=== PATIENT | female | born 1985 | race Caucasian/White ===

== ENCOUNTER 2016-11-18 14:44 | Inpatient (IN) ==
[2016-11-18] MEDS ORDERED: KEFZOL 1 GM/D5W 1 GM/50 ML IVPB IV PRN (14:48)
[2016-11-18] MEDS ORDERED: TYLENOL PO PRN (14:48)
[2016-11-18] MEDS ORDERED: AMPICILLIN 2 GM/NS 2 GM/100 ML IVPB IV ONE ×2 (14:48)
[2016-11-18] MEDS ORDERED: PEPCID IV PRN (14:48)
[2016-11-18] MEDS ORDERED: LR 1,000 ML IV SCH (14:48)
[2016-11-18] MEDS ORDERED: LR 500 ML IV ONE (14:48)
[2016-11-18] MEDS ORDERED: PITOCIN 30 UNITS/LR 30 UNITS/500 ML IV.SOLN IV SCH (14:48)
[2016-11-18] MEDS ORDERED: STADOL IV PRN (14:48)
[2016-11-18] MEDS ORDERED: PEPCID PO ONE (14:48)
[2016-11-18] MEDS ORDERED: REGLAN PO ONE (14:48)
[2016-11-18] MEDS ORDERED: PEPCID PO PRN (14:48)
[2016-11-18] MEDS ORDERED: ZOFRAN IV PRN (14:48)
[2016-11-18 15:07] LABS: MANUAL DIFF NEEDED? NO
[2016-11-18 15:18] LABS: BASO% 0.4 % (0.0-0.8); EOS# 0.03 X1000 (0.0-0.7); EOS% 0.3 % (0.0-10.0); HEMATOCRIT 35.2 % (37.0-47.0); HEMOGLOBIN 11.6 g/dL (12.0-16.0); IMM GRAN# 0.16 X1000 (0.0-0.04); IMM GRAN% 1.4 % (0.0-0.5); LYMPH# 2.15 X1000 (1.2-3.4); LYMPH% 18.9 % (20.5-51.1); MCV 82.1 FL (81-99); MONO# 0.81 X1000 (0.11-0.59); MONO% 7.1 % (1.7-9.3); MPV 10.5 FL (7.4-10.4); NEUT% 71.9 % (42.2-75.2); PLT 244 X1000 (130-400); RBC 4.29 XMIL (4.2-5.4)
--- NOTE | 2016-11-18 15:45 | HISTORY AND PHYSICAL ---
DIAGNOSES: 1. Intrauterine urine at term. 2. Active labor. 3. No care. 4. Drug abuse. 5. Rubella nonimmune. 6. Vaginal condyloma. 7. Meconium. CONDITION: Stable. Ms. Palma is a 31-year-old, 4, para 3, estimated date of delivery of 11/17 by 12 week ultrasound who presents in active labor. She denies rupture of membranes. She denies vaginal bleeding. She states the pain started earlier today and she arrived to the ER via ambulance and was found to be completely dilated. She has had 3 previous vaginal deliveries. Other pregnancies have also been complicated by drug use. The patient states she has taken Dilaudid and amphetamines IV. She has no other medical history, no other surgical history, 3 previous vaginal deliveries. ALLERGIES: No known drug allergies. MEDICATIONS: No prescribed medications. SOCIAL HISTORY: She has some a history of tobacco use. Unsure if she still smokes or not. She is uncooperative at this point. PAST MEDICAL HISTORY: History of anxiety. FAMILY HISTORY: Noncontributory towards delivery however maternal grandmother colon cancer. Maternal grandmother, sister, brother, mother diabetes. Hypertension mother and father. Liver disease mother and father, grandmother. Vital signs are stable. She is in distress with contractions. Unable to get adequate physical exam. She does not appear to be any respiratory distress. Her vitals are stable. She is completely dilated. The infant's scalp noted to be meconium stained. She fights was pushing but finally pushes and delivered a viable male , occiput anterior, over an intact perineum. Shoulders delivered without difficulty followed by the rest of the body. Cord quickly clamped and cut and care taken over by nursery personnel. Cord blood was obtained. The cord is meconium stained. It is 3 vessels. Gentle traction resulted in delivery of an intact placenta that appears normal, some odor to it. The perineum is without lacerations. ESTIMATED BLOOD LOSS: 100 mL. All counts correct. ASSESSMENT: Term , active labor. No care. Drug use. Rubella nonimmune. Meconium stained fluid in infant, possible oligo, possible premature rupture of membranes. PLAN: At this point, after delivery is done routine care. cc: Keshav Senior MD
[2016-11-18 15:52] LABS: RAPID HIV PRESUMPTIVE NEGATIVE
[2016-11-18] MEDS ORDERED: MINERAL OIL PO PRN (16:17)
[2016-11-18] MEDS ORDERED: PITOCIN IM PRN (16:17)
[2016-11-18] MEDS ORDERED: HYDROXYZINE PO PRN (16:17)
[2016-11-18] MEDS ORDERED: HYDROXYZINE IM PRN (16:17)
[2016-11-18] MEDS ORDERED: XYLOCAINE-MPF 1% INJ PRN (16:17)
[2016-11-18] MEDS ORDERED: PERI MEDS (DERMOPLAST/NUPERCAINAL/TUCKS) MISC PRN (16:17)
[2016-11-18] MEDS ORDERED: CYTOTEC PO PRN (16:17)
[2016-11-18] MEDS ORDERED: M-M-R II VACCINE SUBQ ONE (16:17)
[2016-11-18] MEDS ORDERED: PITOCIN 20 UNITS/LR 20 UNITS/1,000 ML IV.SOLN IV SCH (16:17)
[2016-11-18] MEDS ORDERED: BENADRYL PO PRN (16:17)
[2016-11-18] MEDS ORDERED: PITOCIN 30 UNITS/LR 30 UNITS/500 ML IV.SOLN IV ONE (16:17)
[2016-11-18] MEDS ORDERED: BENADRYL IV PRN (16:17)
[2016-11-18] MEDS ORDERED: BOOSTRIX VACCINE IM ONE (16:17)
[2016-11-18] MEDS ORDERED: AMBIEN PO PRN (16:17)
[2016-11-18] MEDS: MOTRIN PO PRN (18:40)
[2016-11-18] MEDS ORDERED: AMPICILLIN 1 GM/NS 1 GM/50 ML IVPB IV SCH (18:50)
[2016-11-18 19:35] LABS: URINE SOURCE VOIDED
[2016-11-18 19:52] LABS: BILIRUBIN URINE NEGATIVE (NEGATIVE); BLOOD URINE 4+ (NEGATIVE); CLARITY BLOODY (CLEAR); COLOR RED; GLUCOSE URINE NEGATIVE (NEGATIVE); LEUKOCYTES URINE 2+ (NEGATIVE); NITRITE URINE NEGATIVE (NEGATIVE); PH URINE 6.5; PROTEIN URINE 2+(100 mg/dL) mg/dL (NEGATIVE); UROBILINOGEN URINE 4+(12 mg/dL)
[2016-11-18 20:05] LABS: UR AMPHETAMINES QUAL PRESUMPTIVE POSITIVE (NONE DETECT); UR BARBITUATES QUAL NONE DETECTED (NONE DETECT); UR BENZODIAZEPIN QUAL NONE DETECTED (NONE DETECT); UR CANNABINOIDS QUAL NONE DETECTED (NONE DETECT); UR COCAINE QUAL NONE DETECTED (NONE DETECT); UR MDMA QUAL NONE DETECTED (NONE DETECT); UR METHADONE QUAL NONE DETECTED (NONE DETECT); UR METHAMPHETAMINE QUAL PRESUMPTIVE POSITIVE (NONE DETECT); UR OPIATES QUAL NONE DETECTED (NONE DETECT); UR OXYCODONE QUAL NONE DETECTED (NONE DETECT); UR PCP QUAL NONE DETECTED (NONE DETECT); UR TCA QUAL NONE DETECTED (NONE DETECT)
[2016-11-18] MEDS: NORCO-5 PO PRN (20:30)
[2016-11-18] MEDS: TRANDATE PO SCH (20:30)
[2016-11-18] MEDS ORDERED: PERICOLACE PO SCH (21:00)
[2016-11-18 22:32] LABS: RUBELLA SCREEN IMMUNE (IMMUNE)
[2016-11-19 05:49] LABS: MANUAL DIFF NEEDED? NO
[2016-11-19] MEDS: MOTRIN PO PRN (05:52)
[2016-11-19] MEDS: NORCO-5 PO PRN (05:52)
[2016-11-19 06:03] LABS: BASO% 0.2 % (0.0-0.8); EOS# 0.08 X1000 (0.0-0.7); EOS% 0.8 % (0.0-10.0); HEMATOCRIT 27.5 % (37.0-47.0); HEMOGLOBIN 8.7 g/dL (12.0-16.0); IMM GRAN# 0.12 X1000 (0.0-0.04); IMM GRAN% 1.2 % (0.0-0.5); LYMPH# 2.54 X1000 (1.2-3.4); LYMPH% 25.3 % (20.5-51.1); MCH 26.6 PG (27-31); MCHC 31.6 g/dL (33-37); MCV 84.1 FL (81-99); MONO# 0.48 X1000 (0.11-0.59); MONO% 4.8 % (1.7-9.3); MPV 10.5 FL (7.4-10.4); NEUT% 67.7 % (42.2-75.2); PLT 197 X1000 (130-400); RBC 3.27 XMIL (4.2-5.4)
[2016-11-19] MEDS: TRANDATE PO SCH (12:07)
[2016-11-19 13:42] VITALS: BP 121/72
--- NOTE | 2016-11-19 15:43 | PROGRESS NOTE ---
DATE: 11/19/2016 SUBJECTIVE: She is day 1. She states that she is a little weak but doing well. She has had no difficulty ambulating, voiding, tolerating p.o. OBJECTIVE: Vital signs: Blood pressure 128/81, temperature 97.2 degrees, pulse 76, respiratory rate 20. General: She is alert and cooperative. She does not appear to be any distress. Neck: Supple. Lungs: Clear. Heart: Regular sinus rhythm. Abdomen: Distended. Uterus is firm. Extremities: No cyanosis, clubbing, or edema in her extremities. LABS: Hemoglobin and hematocrit 01/21. She did test positive for methamphetamines and amphetamines on admission. ASSESSMENT: day 1. PLAN: Continue routine care. It should be noted that she was placed on labetalol 200 twice a day for elevated blood pressures around delivery. This appears to be more of a chronic issue than preeclampsia so will continue current management. cc: Keshav Senior MD
--- NOTE | 2016-11-21 00:10 | DISCHARGE SUMMARY ---
ADMISSION DATE: 11/18/2016 DISCHARGE DATE: 11/19/2016 ADMIT DIAGNOSES: 1. Intrauterine at term no care. 2. Active labor. 3. Intravenous drug abuse of amphetamines. 4. Vaginal and perineal condyloma. 5. Meconium. 6. Hypertension. DISCHARGE DIAGNOSES: 1. Intrauterine at term no care. 2. Active labor. 3. Intravenous drug abuse of amphetamines. 4. Vaginal and perineal condyloma. 5. Meconium. 6. Vaginal delivery. 7. Hypertension. CONDITION: Stable. DIET: As tolerated. ACTIVITY: Routine . MEDICATIONS: She is to have [id number] nonsteroidals, [id number] vitamins, over the counter stool softeners and prescription for 200 of labetalol b.i.d. called in by nurses and she is to follow up in 6 weeks. HOSPITAL COURSE: Patient is a 31-year-old 4, para 4 who presented yesterday with the above diagnoses, a vaginal delivery. Baby was transferred due to what appeared to be a meconium aspiration pneumonia and patient desires discharge after initially thinking she would stay until the Sunday. She decides quickly to leave. She states she is going to [place] to go into drug rehab but she is without complaints at this time. PHYSICAL EXAMINATION: Vital Signs: Stable. She is afebrile. General: She is alert, cooperative, no distress. Neck: Supple. Lungs: Clear. Heart: Regular sinus rhythm. Abdomen: Distended. Uterus is firm and nontender. Extremities: No cyanosis, clubbing, edema in her extremities. LABS: Hemoglobin and hematocrit 8/27. DISPOSITION: Will discharge with above instructions. cc: Keshav Senior MD
[2016-11-21 10:41] LABS: HEPATITIS B SURFACE ANTIGEN SEE COMMENTS
[2016-11-21 11:24] LABS: HIV ANTIBODY SCREEN SEE COMMENTS
== END 2016-11-19 15:00 | disposition home or self-care (01) ==
LOC: P.LD 14:44
PROVIDERS: ADMIT Obstetrics & Gynecology; ATTEND Obstetrics & Gynecology